=== PATIENT | male | born 1945 | race Caucasian/White ===

== ENCOUNTER 2019-08-07 08:06 | Emergency (ER) | payer OTHER, MEDICARE, BC ==
[2019-08-07 08:17] VITALS: BP 175/90; PULSE 88
--- NOTE | 2019-08-07 08:23 | EDM.PDOC ---
"ED HPI GENERAL MEDICAL PROBLEM - General Chief Complaint: Trauma Stated Complaint: FELL AND HIT HEAD Time Seen by Provider: 08/07/19 08:15 Source of Information: Reports: Patient, RN, RN Notes Reviewed History Limitations: Reports: No Limitations - History of Present Illness INITIAL COMMENTS - FREE TEXT/NARRATIVE: Pt presents to ER by POV with c/o head injury sustained from falling on the ice just prior to arrival. He denies LOC, N/V, neck pain or injury, or any other areas of pain. Pt takes an Aspirin 81mg daily. Last Tetanus Vaccine was less than 2 years ago per pt. TRAUMA NOTES ARRIVAL TIME: 814 C-COLLAR STATUS: none/not indicated SPINAL BOARD/IMMOBILIZATION STATUS: n/a GCS ON ARRIVAL: 15 Onset: Today, Sudden Duration: Constant Location: Reports: Head Quality: Reports: Ache Severity: Mild Improves with: Reports: None Worsens with: Reports: None Context: Reports: Other (Fall) Associated Symptoms: Reports: No Other Symptoms - Related Data Allergies Allergy/AdvReac Type Severity Reaction Status Date / Time Penicillins Allergy Cannot Verified 08/07/19 08:24 Remember Home Meds: Home Meds Acetaminophen [Acetaminophen 8 Hour] 1 tab PO Q8H PRN 06/14/16 [History] Latanoprost [Xalatan 0.005% Ophth Soln] 1 drop EYEBOTH BEDTIME 06/14/16 [History ] Levothyroxine 25 mcg PO BEDTIME 06/14/16 [History] Simvastatin 20 mg PO BEDTIME 06/14/16 [History] Aspirin 325 mg PO DAILY 06/16/16 [History] Past Medical History HEENT History: Reports: Glaucoma, Hard of Hearing Cardiovascular History: Reports: High Cholesterol Respiratory History: Reports: Bronchitis, Recurrent Gastrointestinal History: Reports: Hemorrhoids, Other (See Below) Other Gastrointestinal History: VENTRAL HERNIA Genitourinary History: Reports: None Musculoskeletal History: Reports: Fracture, Other (See Below) Other Musculoskeletal History: DEGENERATIVE JOINT DISEASE Neurological History: Reports: None Psychiatric History: Reports: None Endocrine/Metabolic History: Reports: Hypothyroidism, Obesity/BMI 30+ Hematologic History: Reports: None Immunologic History: Reports: None Oncologic (Cancer) History: Reports: None Dermatologic History: Reports: None - Infectious Disease History Infectious Disease History: Reports: Measles, Mumps - Past Surgical History HEENT Surgical History: Reports: Other (See Below) Musculoskeletal Surgical History: Reports: Arthroscopic Knee, Joint Replacement , Other (See Below) Social & Family History - Family History HEENT: Reports: None Cardiac: Reports: None Respiratory: Reports: None GI: Reports: None : Reports: None OBGYN: Reports: None Musculoskeletal: Reports: Arthritis Neurological: Reports: None Psychiatric: Reports: None Endocrine/Metabolic: Reports: Hypothyroidism Hematologic: Reports: None Immunologic: Reports: None Dermatologic: Reports: None Oncologic: Reports: Prostate, Skin - Caffeine Use Caffeine Use: Reports: Coffee Review of Systems - Review of Systems Review Of Systems: Comprehensive ROS is negative, except as noted in HPI. ED EXAM, GENERAL - Physical Exam Exam: See Below Free Text/Narrative:: PRIMARY TRAUMA SURVEY (0815hrs) AIRWAY: Patent nasal and oral airways. BREATHING: Spontaneous respirations with clear B/L breath sounds. CIRCULATION: Heart RRR, intact distal pulses at all four extremities, no cyanosis. DEFORMITY/DISABILITY: No long bone deformities. No active bleeding. No neuro. deficits. Abdomen benign to exam. Chest non-tender. Pelvis stable. Posterior/ superior scalp with large hematoma, and 2cm linear laceration with dried blood on scalp, no active bleeding. EXPOSURE: Skin warm, and dry. SECONDARY TRAUMA SURVEY FOLLOWS (0850hrs) Exam Limited By: No Limitations General Appearance: Alert, WD/WN, No Apparent Distress, Obese Eye Exam: Bilateral Eye: EOMI, Normal Inspection, PERRL Ears: Normal External Exam, Normal Canal, Hearing Grossly Normal, Normal TMs Nose: Normal Inspection, Normal Mucosa, No Blood Throat/Mouth: Normal Inspection, Normal Lips, Normal Teeth, Normal Gums, Normal Oropharynx, Normal Voice, No Airway Compromise Head: Normocephalic, Other (scalp as per primary trauma survey) Neck: Normal Inspection, Supple, Non-Tender, Full Range of Motion. No: Tender Lateral, Tender Midline Respiratory/Chest: No Respiratory Distress, Lungs Clear, Normal Breath Sounds, No Accessory Muscle Use, Chest Non-Tender Cardiovascular: Regular Rate, Rhythm GI/Abdominal: Normal Bowel Sounds, Soft, Non-Tender Back Exam: Normal Inspection, Full Range of Motion Extremities: Normal Inspection, Normal Range of Motion, Non-Tender, Normal Capillary Refill, No Pedal Edema Neurological: Alert, Oriented, CN II-XII Intact, Normal Cognition, Normal Gait, No Motor/Sensory Deficits Psychiatric: Normal Affect, Normal Mood Skin Exam: Warm, Dry, Normal Color Course - Vital Signs Last Recorded V/S: Last Vital Signs Temp 98.0 F 08/07/19 08:15 Pulse 88 08/07/19 08:15 Resp 16 08/07/19 08:15 BP 175/90 H 08/07/19 08:15 Pulse Ox 96 08/07/19 08:15 - Orders/Labs/Meds Orders: Active Orders 24 hr Category Date Time Status Wound Care [RC] ONETIME Care 08/07/19 08:51 Ordered Head wo Cont [CT] Stat Exams 08/07/19 08:21 Taken Meds: Medications Discontinued Medications Generic Name Dose Route Start Last Admin Trade Name Freq PRN Reason Stop Dose Admin Bacitracin 1 dose 08/07/19 08:51 Bacitracin Oint 1 Gm TOP 08/07/19 08:52 ONETIME ONE - Radiology Interpretation Free Text/Narrative:: [facility] Final Radiology Report Call: [phone] assistance Online chat: [email or web address] Name: JIAN MCBRIDE Age: 73Years M Date: 08/07/2019 SSN: -- : [id number] Study: CT HEAD WO Requesting Physician: KHRIS LACY Images: 198 Addl Studies: Provided Clinical History: Contrast: Without Contrast Medium: Contrast Amount: Contrast Method: Page 1 of 2 PROCEDURE INFORMATION: Exam: CT Head Without Contrast Exam date and time: 08/07/2019 8:27 AM Age: 73 years old Clinical indication: Other: Fall on ice, head injury, on aspirin TECHNIQUE: Imaging protocol: Computed tomography of the head without contrast. Radiation optimization: All CT scans at this facility use at least one of these dose optimization techniques: automated exposure control; mA and/or kV adjustment per patient size (includes targeted exams where dose is matched to clinical indication); or iterative reconstruction. COMPARISON: No relevant prior studies available. FINDINGS: Brain: Normal. No hemorrhage. Unremarkable white matter. No mass effect. Ventricles: Normal. No ventriculomegaly. Bones/joints: Unremarkable. No acute fracture. Sinuses: Retention cyst versus polyp within the floor of the right maxillary sinus. Mastoid air cells: Partial opacification of the inferior right mastoid air cells Soft tissues: Right posterior parietal scalp hematoma. Vasculature: Dominant left vertebral artery. IMPRESSION: No acute intracranial abnormality. Thank you for allowing us to participate in the care of your patient. Dictated and Authenticated by: Abdoulaye Morris MD BUCHLI, GERALD | Final Radiology Report CONFIDENTIALITY STATEMENT This report is intended only for use by the referring physician, and only in accordance with law. If you received this in error, call [phone]. Page 2 of 2 08/07/2019 8:37 AM Central Time ([place] & [place]) - Re-Assessments/Exams Free Text/Narrative Re-Assessment/Exam: 08/07/19 08:53 On reassessment pt remains awake, alert and stable. The laceration of the scalp is superficial and does not require procedural closure. Pt will be d/c'd home. Departure - Departure Time of Disposition: 09:10 Disposition: Home, Self-Care 01 Condition: Good Clinical Impression: Traumatic hematoma of scalp Qualifiers: Encounter type: initial encounter Qualified Code(s): S00.03XA - Contusion of scalp, initial encounter Scalp laceration Qualifiers: Encounter type: initial encounter Qualified Code(s): S01.01XA - Laceration without foreign body of scalp, initial encounter Fall due to ice or snow Qualifiers: Encounter type: initial encounter Qualified Code(s): W00.9XXA - Unspecified fall due to ice and snow, initial encounter - Discharge Information *PRESCRIPTION DRUG MONITORING PROGRAM REVIEWED*: Not Applicable *COPY OF PRESCRIPTION DRUG MONITORING REPORT IN PATIENT ESCOBAR: Not Applicable Instructions: Hematoma, Nonsutured Laceration Care Forms: ED Department Discharge Additional Instructions: Activity as tolerated. The scalp swelling from the hematoma may take two to three weeks to resolve. Apply an ice pack to the scalp to reduce pain and swelling. Follow up in clinic if any further concerns. Sepsis Event Note - Evaluation Sepsis Screening Result: No Definite Risk - Focused Exam Vital Signs: Vital Signs Temp Pulse Resp BP Pulse Ox 08/07/19 08:15 98.0 F 88 16 175/90 H 96 Date Exam was Performed: 08/07/19 Time Exam was Performed: 08:52 - My Orders Last 24 Hours: My Active Orders 08/07/19 08:21 Head wo Cont [CT] Stat 08/07/19 08:51 Wound Care [RC] ONETIME - Assessment/Plan Last 24 Hours: My Active Orders 08/07/19 08:21 Head wo Cont [CT] Stat 08/07/19 08:51 Wound Care [RC] ONETIME"
[2019-08-07] MEDS ORDERED: Bacitracin Oint 1 GM U/D Packet TOP ONE (08:51)
== END 2019-08-07 09:00 | disposition home or self-care (01) ==
LOC: DL.ED 08:06
DX: S01.01XA Laceration without foreign body of scalp, initial encounter (principal); E78.00 Pure hypercholesterolemia, unspecified; E03.9 Hypothyroidism, unspecified; E66.9 Obesity, unspecified; Z68.39 Body mass index [BMI] 39.0-39.9, adult; Z88.0 Allergy status to penicillin; Z79.899 Other long term (current) drug therapy; Z79.82 Long term (current) use of aspirin; W00.9XXA Unspecified fall due to ice and snow, initial encounter
CPT/HCPCS: 70450; 99283-25

== ENCOUNTER 2020-04-11 09:38 | Inpatient (IN) | payer MEDICARE, BC ==
[2020-04-11] MEDS ORDERED: Acetaminophen 325 MG Tab PO PRN (09:41)
[2020-04-11] MEDS ORDERED: Docusate Sodium 100 MG Cap PO PRN (10:35)
[2020-04-11] MEDS ORDERED: Ondansetron 4 MG/2 ML SDV IVPUSH PRN (10:35)
[2020-04-11] MEDS ORDERED: Temazepam 15 MG Cap PO PRN (10:35)
[2020-04-11] MEDS ORDERED: Ondansetron 4 MG Tab.DIS PO PRN (10:35)
[2020-04-11] MEDS: Dexamethasone 2 MG Tab PO SCH (10:41)
[2020-04-11] MEDS: Aspirin 325 MG Tab PO SCH (10:41)
[2020-04-11 10:59] LABS: ANION GAP 15.7 mEq/L (7-13); CHLORIDE,CL 100 mmol/L (98-107); SODIUM,NA 138 mmol/L (136-145)
--- NOTE | 2020-04-11 12:59 | CR ---
EXAMINATION: Chest 1V Frontal SEX: Male AGE: 74 years CLINICAL HISTORY: 74-year-old obese male with Respiratory Failure. Interpretation: Generally poor inspiratory effort with bibasilar atelectasis and ... *patchy new pneumonic like consolidation RLL (compared to 07 Oct 2011 film). This has a "groundglass" like appearance and clinical correlation (COVID test?) Requested. Cardiac silhouette accentuated by poor inspiration. No pulmonary vascular congestion, cephalization of flow or dependent pleural fluid accumulation (effusion). No new lung mass or hilar lymphadenopathy. No pneumothorax or pneumomediastinum. Midline trachea unremarkable. CONCLUSION: Abnormal. INTERPRETATION: 1. CONCLUSION:
--- NOTE | 2020-04-11 13:46 | PCM.HP ---
H&P History of Present Illness - General Date of Service: 04/11/20 Admit Problem/Dx: Admission Diagnosis/Problem Admission Diagnosis/Problem Pneumonia Source of Information: Patient - History of Present Illness Initial Comments - Free Text/Narative: 74-year-old with a history of hypothyroidism, morbid obesity. No underlying lung disease although "I get bronchitis easy" no smoking The patient was out hunting with friends. Developed coughing on 07 April. Tested positive for covid on 08 April all other members of the hunting democrat tested positive as well. Continues to have cough, no significant chest pain, Shortness of breath with activity Went to the clinic and was noted to have 89% room air saturation - Related Data Allergies/Adverse Reactions: Allergies Allergy/AdvReac Type Severity Reaction Status Date / Time Penicillins Allergy Cannot Verified 08/07/19 08:24 Remember Home Medications: Home Meds Acetaminophen [Acetaminophen 8 Hour] 1 tab PO Q8H PRN 06/14/16 [History] Latanoprost [Xalatan 0.005% Ophth Soln] 1 drop EYEBOTH BEDTIME 06/14/16 [History] Levothyroxine 25 mcg PO BEDTIME 06/14/16 [History] Simvastatin 20 mg PO BEDTIME 06/14/16 [History] Aspirin 325 mg PO DAILY 06/16/16 [History] Past Medical History HEENT History: Reports: Glaucoma, Hard of Hearing Cardiovascular History: Reports: High Cholesterol Respiratory History: Reports: Bronchitis, Recurrent Gastrointestinal History: Reports: Hemorrhoids, Other (See Below) Other Gastrointestinal History: VENTRAL HERNIA Genitourinary History: Reports: None Musculoskeletal History: Reports: Fracture, Other (See Below) Other Musculoskeletal History: DEGENERATIVE JOINT DISEASE Neurological History: Reports: None Psychiatric History: Reports: None Endocrine/Metabolic History: Reports: Hypothyroidism, Obesity/BMI 30+ Hematologic History: Reports: None Immunologic History: Reports: None Oncologic (Cancer) History: Reports: None Dermatologic History: Reports: None - Infectious Disease History Infectious Disease History: Reports: Novel Coronavirus - Past Surgical History HEENT Surgical History: Reports: Other (See Below) Musculoskeletal Surgical History: Reports: Arthroscopic Knee, Joint Replacement, Other (See Below) Social & Family History - Family History HEENT: Reports: None Cardiac: Reports: None Respiratory: Reports: None GI: Reports: None : Reports: None OBGYN: Reports: None Musculoskeletal: Reports: Arthritis Neurological: Reports: None Psychiatric: Reports: None Endocrine/Metabolic: Reports: Hypothyroidism Hematologic: Reports: None Immunologic: Reports: None Dermatologic: Reports: None Oncologic: Reports: Prostate, Skin - Tobacco Use Tobacco Use Status *Q: Former Tobacco User Years of Tobacco use: 30 Used Tobacco, but Quit: Yes Month/Year Tobacco Last Used: 1947 - Caffeine Use Caffeine Use: Reports: None - Recreational Drug Use Recreational Drug Use: No H&P Review of Systems - Review of Systems: Review Of Systems: See Below General: Reports: Malaise, Weakness. Denies: Fever Pulmonary: Reports: Shortness of Breath, Cough (with activity). Denies: Sputum, Hemoptysis Cardiovascular: Denies: Chest Pain, Edema Psychiatric: Denies: Confusion Exam - Exam Exam: See Below - Vital Signs Vital Signs: Last Vital Signs Temp 100.8 F H 04/11/20 10:09 Pulse 103 H 04/11/20 10:09 Resp 20 04/11/20 10:09 BP 151/87 H 04/11/20 10:09 Pulse Ox 93 L 04/11/20 10:09 Weight: 270 lb - Exam Quality Assessment: Supplemental Oxygen General: Alert, Oriented Neck: Supple Lungs: Normal Respiratory Effort, Decreased Breath Sounds. No: Rales, Wheezing Cardiovascular: Regular Rate, Regular Rhythm Extremities: No Pedal Edema - Patient Data Lab Results Last 24 hrs: Laboratory Results - last 24 hr 04/11/20 04/11/20 04/11/20 Range/Units 10:17 10:17 10:17 WBC 7.2 (5.0-10.0) 10^3/uL RBC 5.04 (4.6-6.2) 10^6/uL Hgb 15.0 (14.0-18.0) g/dL Hct 44.9 (40.0-54.0) % MCV 89.1 (80-100) fL MCH 29.8 (27.0-34.0) pg MCHC 33.4 (33.0-35.0) g/dL Plt Count 171 (150-450) 10^3/uL Neut % (Auto) 89.7 H (42.2-75.2) % Lymph % (Auto) 3.9 L (20.5-50.1) % Dent % (Auto) 5.4 (2-8) % Eos % (Auto) 0.7 L (1.0-3.0) % Baso % (Auto) 0.3 (0.0-1.0) % PT (9.0-12.0) SEC INR (0.9-1.2) D-Dimer, Quantitative 985 H (0-400) ng/mL Sodium (136-145) mmol/L Potassium (3.5-5.1) mmol/L Chloride (98-107) mmol/L Carbon Dioxide (21-32) mmol/L Anion Gap (7-13) mEq/L BUN (7-18) mg/dL Creatinine (0.70-1.30) mg/dL Est Cr Clr Drug Dosing mL/min Estimated GFR (MDRD) Glucose (74-99) mg/dL Lactic Acid (0.4-2.0) mmol/L Calcium (8.5-10.1) mg/dL Ferritin 493 H (26-388) mg/mL Total Bilirubin (0.2-1.0) mg/dL Direct Bilirubin (0.0-0.2) mg/dL Indirect Bilirubin AST (15-37) U/L ALT (16-63) U/L Alkaline Phosphatase (46-116) U/L C-Reactive Protein (0.0-0.9) mg/dL Total Protein (6.4-8.2) g/dL Albumin (3.4-5.0) g/dL Globulin Albumin/Globulin Ratio 04/11/20 04/11/20 04/11/20 Range/Units 10:17 10:17 10:17 WBC (5.0-10.0) 10^3/uL RBC (4.6-6.2) 10^6/uL Hgb (14.0-18.0) g/dL Hct (40.0-54.0) % MCV (80-100) fL MCH (27.0-34.0) pg MCHC (33.0-35.0) g/dL Plt Count (150-450) 10^3/uL Neut % (Auto) (42.2-75.2) % Lymph % (Auto) (20.5-50.1) % Dent % (Auto) (2-8) % Eos % (Auto) (1.0-3.0) % Baso % (Auto) (0.0-1.0) % PT 10.8 (9.0-12.0) SEC INR 1.1 (0.9-1.2) D-Dimer, Quantitative (0-400) ng/mL Sodium 138 (136-145) mmol/L Potassium 3.7 (3.5-5.1) mmol/L Chloride 100 (98-107) mmol/L Carbon Dioxide 26 (21-32) mmol/L Anion Gap 15.7 H (7-13) mEq/L BUN 17 (7-18) mg/dL Creatinine 1.14 (0.70-1.30) mg/dL Est Cr Clr Drug Dosing 57.81 mL/min Estimated GFR (MDRD) > 60 Glucose 117 H (74-99) mg/dL Lactic Acid 1.4 (0.4-2.0) mmol/L Calcium 8.6 (8.5-10.1) mg/dL Ferritin (26-388) mg/mL Total Bilirubin 0.6 (0.2-1.0) mg/dL Direct Bilirubin 0.2 (0.0-0.2) mg/dL Indirect Bilirubin 0.4 AST 62 H (15-37) U/L ALT 60 (16-63) U/L Alkaline Phosphatase 162 H (46-116) U/L C-Reactive Protein 9.2 H (0.0-0.9) mg/dL Total Protein 6.9 (6.4-8.2) g/dL Albumin 2.9 L (3.4-5.0) g/dL Globulin 4.0 Albumin/Globulin Ratio 0.73 Result Diagrams: 04/11/20 10:17 04/11/20 10:17 - Problem List (1) Pneumonia due to COVID-19 virus SNOMED Code(s): 564712933783201980 ICD Code: U07.1 - COVID-19; J12.89 - OTHER VIRAL PNEUMONIA Status: Acute Current Visit: Yes (2) Pneumonia due to COVID-19 virus SNOMED Code(s): 698771458182288454 ICD Code: U07.1 - COVID-19; J12.89 - OTHER VIRAL PNEUMONIA Status: Acute Current Visit: Yes (3) Hypoxemia SNOMED Code(s): 302973327 ICD Code: R09.02 - HYPOXEMIA Status: Acute Current Visit: Yes (4) Hypothyroid SNOMED Code(s): 42764972 ICD Code: E03.9 - HYPOTHYROIDISM, UNSPECIFIED Status: Acute Current Visit: Yes (5) Dyslipidemia SNOMED Code(s): 401713065 ICD Code: E78.5 - HYPERLIPIDEMIA, UNSPECIFIED Status: Acute Current Visit: Yes Problem List Initiated/Reviewed/Updated: Yes Orders Last 24hrs: Active Orders 24 hr Category Date Time Status Patient Status [ADT] Routine ADT 04/11/20 10:35 Active Oxygen Therapy [RC] PRN Care 04/11/20 10:35 Active Peripheral IV Care [RC] . DIRECTED Care 04/11/20 10:37 Active Up With Assistance [RC] ASDIRECTED Care 04/11/20 10:35 Active VTE/DVT Education [RC] PER UNIT ROUTINE Care 04/11/20 10:35 Active Verify Patient Consent Obtain [RC] ASDIRECTED Care 04/11/20 13:39 Ordered Vital Signs [RC] Q4H Care 04/11/20 10:35 Active Regular Diet [DIET] Diet 04/11/20 Lunch Active ABO/RH TYPE [BBK] Routine Lab 04/11/20 13:39 Ordered BASIC METABOLIC PANEL,BMP [CHEM] AM Lab 04/13/20 05:11 Ordered BASIC METABOLIC PANEL,BMP [CHEM] AM Lab 04/14/20 05:11 Ordered BASIC METABOLIC PANEL,BMP [CHEM] AM Lab 04/15/20 05:11 Ordered BASIC METABOLIC PANEL,BMP [CHEM] AM Lab 04/16/20 05:11 Ordered BASIC METABOLIC PANEL,BMP [CHEM] AM Lab 04/17/20 05:11 Ordered CBC WITH AUTO DIFF [HEME] AM Lab 04/13/20 05:11 Ordered CBC WITH AUTO DIFF [HEME] AM Lab 04/14/20 05:11 Ordered CBC WITH AUTO DIFF [HEME] AM Lab 04/15/20 05:11 Ordered CBC WITH AUTO DIFF [HEME] AM Lab 04/16/20 05:11 Ordered CBC WITH AUTO DIFF [HEME] AM Lab 04/17/20 05:11 Ordered CULTURE BLOOD [BC] Stat Lab 04/11/20 10:14 Received CULTURE BLOOD [BC] Stat Lab 04/11/20 10:17 Received CULTURE SPUTUM + SMEAR [RM] Routine Lab 04/11/20 09:42 Ordered DD [D-DIMER QUANTITATIVE] [COAG] AM Lab 04/12/20 05:11 Ordered DD [D-DIMER QUANTITATIVE] [COAG] AM Lab 04/13/20 05:11 Ordered DD [D-DIMER QUANTITATIVE] [COAG] AM Lab 04/14/20 05:11 Ordered DD [D-DIMER QUANTITATIVE] [COAG] AM Lab 04/15/20 05:11 Ordered DD [D-DIMER QUANTITATIVE] [COAG] AM Lab 04/16/20 05:11 Ordered FRESH FROZEN PLASMA [BBK] Routine Lab 04/11/20 13:39 Ordered HEPATIC FUNCTION PANEL,[facility] [CHEM] AM Lab 04/12/20 05:11 Ordered HEPATIC FUNCTION PANEL,[facility] [CHEM] AM Lab 04/13/20 05:11 Ordered HEPATIC FUNCTION PANEL,[facility] [CHEM] AM Lab 04/14/20 05:11 Ordered HEPATIC FUNCTION PANEL,[facility] [CHEM] AM Lab 04/15/20 05:11 Ordered HEPATIC FUNCTION PANEL,[facility] [CHEM] AM Lab 04/16/20 05:11 Ordered MAGNESIUM [CHEM] AM Lab 04/12/20 05:11 Ordered MAGNESIUM [CHEM] AM Lab 04/13/20 05:11 Ordered MAGNESIUM [CHEM] AM Lab 04/14/20 05:11 Ordered MAGNESIUM [CHEM] AM Lab 04/15/20 05:11 Ordered MAGNESIUM [CHEM] AM Lab 04/16/20 05:11 Ordered PHOSPHORUS [CHEM] AM Lab 04/12/20 05:11 Ordered PHOSPHORUS [CHEM] AM Lab 04/13/20 05:11 Ordered PHOSPHORUS [CHEM] AM Lab 04/14/20 05:11 Ordered PHOSPHORUS [CHEM] AM Lab 04/15/20 05:11 Ordered PHOSPHORUS [CHEM] AM Lab 04/16/20 05:11 Ordered PROCALCITONIN [REF] DAILY Lab 04/11/20 13:45 Ordered PROCALCITONIN [REF] DAILY Lab 04/12/20 13:45 Ordered PROCALCITONIN [REF] DAILY Lab 04/13/20 13:45 Ordered PROCALCITONIN [REF] DAILY Lab 04/14/20 13:45 Ordered PROCALCITONIN [REF] DAILY Lab 04/15/20 13:45 Ordered PROCALCITONIN [REF] Stat Lab 04/11/20 10:17 Received Acetaminophen [TylenoL] Med 04/11/20 09:41 Active 650 mg PO Q4H PRN Aspirin Med 04/11/20 09:45 Active 325 mg PO DAILY Docusate Sodium [Colace] Med 04/11/20 10:35 Active 100 mg PO BID PRN Enoxaparin [Lovenox] Med 04/12/20 09:00 Active 40 mg SUBCUT DAILY Latanoprost [Xalatan 0.005% Ophth Soln] Med 04/11/20 21:00 Active 0 ml EYEBOTH BEDTIME Levothyroxine Med 04/11/20 21:00 Active 25 mcg PO BEDTIME Ondansetron [Zofran ODT] Med 04/11/20 10:35 Active 4 mg PO Q6H PRN Ondansetron [Zofran] Med 04/11/20 10:35 Active 4 mg IVPUSH Q6H PRN Remdesivir (Eua) [Remdesivir (EUA)] 100 mg Med 04/12/20 09:00 Ordered Sodium Chloride 0.9% [Normal Saline] 230 ml IV Q24H Remdesivir (Eua) [Remdesivir (EUA)] 200 mg Med 04/11/20 13:40 Ordered Sodium Chloride 0.9% [Normal Saline] 210 ml IV ONETIME Sodium Chloride 0.9% [Saline Flush] Med 04/11/20 10:35 Active 10 ml FLUSH ASDIRECTED PRN Temazepam [Restoril] Med 04/11/20 10:35 Active 15 mg PO BEDTIME PRN dexAMETHasone Med 04/11/20 09:45 Active 6 mg PO DAILY Blood Culture x2 Reflex Set [OM.PC] Stat Oth 04/11/20 12:47 Ordered Isolation [COMM] Stat Ot 04/11/20 09:41 Active Peripheral IV Insertion Adult [OM.PC] Routine Oth 04/11/20 10:35 Ordered Saline Lock Insert [OM.PC] Routine Oth 04/11/20 10:35 Ordered Transfuse Fresh Frozen Plasma [COMM] Routine Oth 04/11/20 13:39 Ordered Resuscitation Status Routine Resus Stat 04/11/20 10:35 Ordered Medication Orders Acetaminophen (Tylenol) 650 mg PO Q4H PRN PRN Reason: Fever Greater Than 101 Last Admin: 04/11/20 10:48 Dose: 650 mg Documented by: FOREIGN Aspirin (Aspirin) 325 mg PO DAILY [facility] Last Admin: 04/11/20 10:41 Dose: 325 mg Documented by: FOREIGN Dexamethasone (Dexamethasone) 6 mg PO DAILY CHARLENE Stop: 04/20/20 09:01 Last Admin: 04/11/20 10:41 Dose: 6 mg Documented by: FOREIGN Docusate Sodium (Colace) 100 mg PO BID PRN PRN Reason: Constipation Enoxaparin Sodium (Lovenox) 40 mg SUBCUT DAILY CHARLENE Latanoprost (Xalatan 0.005% Ophth Soln) 0 ml EYEBOTH BEDTIME CHARLENE Levothyroxine Sodium (Levothyroxine) 25 mcg PO BEDTIME CHARLENE Ondansetron HCl (Zofran Odt) 4 mg PO Q6H PRN PRN Reason: nausea, able to take PO Ondansetron HCl (Zofran) 4 mg IVPUSH Q6H PRN PRN Reason: Nausea/Vomiting Sodium Chloride (Saline Flush) 10 ml FLUSH ASDIRECTED PRN PRN Reason: Keep Vein Open Temazepam (Restoril) 15 mg PO BEDTIME PRN PRN Reason: Sleep Assessment/Plan Comment:: presented with cough Tested positive for Covid Noted to have hypoxemia in the clinic and was referred to Hospital evaluation and treatment Acute hypoxemic respiratory failure secondary to Covid 19 pneumonia Supplement oxygen as needed Covid 19 pneumonia symptoms started on 04/07 Positive covid 19 screen on 04/08 Symptoms: cough, Pneumonia: yes, RLL patchy opacity on 04/11 Hypoxemia: yes 89% on RA 04/11 in clinic LFT, Renal fx. Is good treat with Remdesivir 04/11- discussed potential complications with Dexamethasone 04/11- Plasma 04/11 discussed risks, benefits evaluate for concurrent bacterial infections Follow pro-calcitonin levels In the meantime hold Abx Ddimer is low - DVT prophylaxis SQ Lovenox daily hypothyroidism Continue Synthroid dyslipidemia Hold statin for now
[2020-04-11] MEDS: Sodium Chloride 0.9% 10 ML Syringe FLUSH PRN (16:39)
[2020-04-11] MEDS: Levothyroxine 25 MCG Tab PO SCH (20:24)
[2020-04-11] MEDS: Latanoprost 0.005% Ophth Soln 2.5 ML Bottle EYEBOTH SCH (20:24)
[2020-04-12] MEDS: Dexamethasone 2 MG Tab PO SCH (08:38)
[2020-04-12] MEDS: Aspirin 325 MG Tab PO SCH (08:38)
[2020-04-12] MEDS ORDERED: Enoxaparin 40 MG/0.4 ML Syringe SUBCUT SCH (09:00)
--- NOTE | 2020-04-12 11:20 | PCM.PN ---
- General Info Date of Service: 04/12/20 Subjective Update: feeling well Still on nasal cannula oxygen Has cough but no significant sputum No associated chest pain, chills Slept well, tolerating diet, no diarrhea or abdominal symptoms Functional Status: Reports: Pain Controlled, Tolerating Diet, Ambulating - Review of Systems General: Denies: Fever, Weakness Pulmonary: Reports: Shortness of Breath Cardiovascular: Denies: Chest Pain, Edema Gastrointestinal: Denies: Abdominal Pain Neurological: Denies: Confusion - Patient Data Vitals - Most Recent: Last Vital Signs Temp 98.5 F 04/12/20 08:00 Pulse 72 04/12/20 08:00 Resp 20 04/12/20 08:00 BP 147/84 H 04/12/20 08:00 Pulse Ox 95 04/12/20 08:00 Weight - Most Recent: 270 lb I&O - Last 24 Hours: Intake & Output 04/11/20 04/12/20 04/12/20 22:59 06:59 14:59 Intake Total 492 350 Balance 492 350 Lab Results Last 24 Hours: Laboratory Results - last 24 hr 04/11/20 04/11/20 04/11/20 Range/Units 10:17 10:17 10:17 D-Dimer, Quantitative (0-400) ng/mL Phosphorus (2.6-4.7) mg/dL Magnesium (1.8-2.4) mg/dL Ferritin 493 H (26-388) mg/mL Total Bilirubin (0.2-1.0) mg/dL Direct Bilirubin (0.0-0.2) mg/dL Indirect Bilirubin AST (15-37) U/L ALT (16-63) U/L Alkaline Phosphatase (46-116) U/L Total Protein (6.4-8.2) g/dL Albumin (3.4-5.0) g/dL Globulin Albumin/Globulin Ratio Procalcitonin 0.23 H (<0.10) ng/mL Blood Type O POSITIVE 04/12/20 04/12/20 Range/Units 06:22 06:22 D-Dimer, Quantitative 738 H (0-400) ng/mL Phosphorus 2.9 (2.6-4.7) mg/dL Magnesium 2.2 (1.8-2.4) mg/dL Ferritin (26-388) mg/mL Total Bilirubin 0.3 (0.2-1.0) mg/dL Direct Bilirubin 0.1 (0.0-0.2) mg/dL Indirect Bilirubin 0.2 AST 47 H (15-37) U/L ALT 59 (16-63) U/L Alkaline Phosphatase 154 H (46-116) U/L Total Protein 6.5 (6.4-8.2) g/dL Albumin 2.6 L (3.4-5.0) g/dL Globulin 3.9 Albumin/Globulin Ratio 0.67 Procalcitonin (<0.10) ng/mL Blood Type Med Orders - Current: Current Medications Acetaminophen (Tylenol) 650 mg PO Q4H PRN PRN Reason: Fever Greater Than 101 Last Admin: 04/11/20 10:48 Dose: 650 mg Documented by: Aspirin (Aspirin) 325 mg PO DAILY [facility] Last Admin: 04/12/20 08:38 Dose: 325 mg Documented by: Dexamethasone (Dexamethasone) 6 mg PO DAILY [facility] Stop: 04/20/20 09:01 Last Admin: 04/12/20 08:38 Dose: 6 mg Documented by: Docusate Sodium (Colace) 100 mg PO BID PRN PRN Reason: Constipation Enoxaparin Sodium (Lovenox) 40 mg SUBCUT BID [facility] Remdesivir 100 mg/ Sodium (Chloride) 230 mls @ 230 mls/hr IV Q24H [facility] Stop: 04/15/20 14:59 Latanoprost (Xalatan 0.005% Ophth Soln) 0 ml EYEBOTH BEDTIME [facility] Last Admin: 04/11/20 20:24 Dose: 1 drop Documented by: Levothyroxine Sodium (Levothyroxine) 25 mcg PO BEDTIME [facility] Last Admin: 04/11/20 20:24 Dose: 25 mcg Documented by: Ondansetron HCl (Zofran Odt) 4 mg PO Q6H PRN PRN Reason: nausea, able to take PO Ondansetron HCl (Zofran) 4 mg IVPUSH Q6H PRN PRN Reason: Nausea/Vomiting Sodium Chloride (Saline Flush) 10 ml FLUSH ASDIRECTED PRN PRN Reason: Keep Vein Open Last Admin: 04/11/20 16:39 Dose: 10 ml Documented by: Temazepam (Restoril) 15 mg PO BEDTIME PRN PRN Reason: Sleep Discontinued Medications Enoxaparin Sodium (Lovenox) 40 mg SUBCUT DAILY [facility] Remdesivir 200 mg/ Sodium (Chloride) 210 mls @ 210 mls/hr IV ONETIME ONE Stop: 04/11/20 15:14 Last Infusion: 04/11/20 16:39 Dose: Infused Documented by: - Exam Quality Assessment: Supplemental Oxygen General: Alert, Oriented Lungs: Normal Respiratory Effort, Decreased Breath Sounds GI/Abdominal Exam: Normal Bowel Sounds, Soft, Non-Tender, Other (obese) Extremities: No Pedal Edema Sepsis Event Note - Evaluation Sepsis Screening Result: No Definite Risk - Focused Exam Vital Signs: Vital Signs Temp Pulse Resp BP Pulse Ox 04/12/20 08:00 98.5 F 72 20 147/84 H 95 04/12/20 04:00 95 - Problem List & Annotations (1) Pneumonia due to COVID-19 virus SNOMED Code(s): 066527573943133044 Code(s): U07.1 - COVID-19; J12.89 - OTHER VIRAL PNEUMONIA Status: Acute Current Visit: Yes (2) Pneumonia due to COVID-19 virus SNOMED Code(s): 753357327805972346 Code(s): U07.1 - COVID-19; J12.89 - OTHER VIRAL PNEUMONIA Status: Acute Current Visit: Yes (3) Hypoxemia SNOMED Code(s): 393320627 Code(s): R09.02 - HYPOXEMIA Status: Acute Current Visit: Yes (4) Hypothyroid SNOMED Code(s): 12064212 Code(s): E03.9 - HYPOTHYROIDISM, UNSPECIFIED Status: Acute Current Visit: Yes (5) Dyslipidemia SNOMED Code(s): 541659642 Code(s): E78.5 - HYPERLIPIDEMIA, UNSPECIFIED Status: Acute Current Visit: Yes - Problem List Review Problem List Initiated/Reviewed/Updated: Yes - My Orders Last 24 Hours: My Active Orders 04/11/20 10:17 ABO/RH TYPE [BBK] Routine CULTURE BLOOD [BC] Stat FRESH FROZEN PLASMA [BBK] Routine 04/11/20 10:35 Patient Status [ADT] Routine Oxygen Therapy [RC] PRN Up With Assistance [RC] ASDIRECTED VTE/DVT Education [RC] PER UNIT ROUTINE Vital Signs [RC] 00,04,08,12,16,20 Docusate Sodium [Colace] 100 mg PO BID PRN Ondansetron [Zofran ODT] 4 mg PO Q6H PRN Ondansetron [Zofran] 4 mg IVPUSH Q6H PRN Sodium Chloride 0.9% [Saline Flush] 10 ml FLUSH ASDIRECTED PRN Temazepam [Restoril] 15 mg PO BEDTIME PRN Peripheral IV Insertion Adult [OM.PC] Routine Saline Lock Insert [OM.PC] Routine Resuscitation Status Routine 04/11/20 10:37 Peripheral IV Care [RC] 04/11/20 Lunch Regular Diet [DIET] 04/11/20 12:47 Blood Culture x2 Reflex Set [OM.PC] Stat 04/11/20 13:39 Verify Patient Consent Obtain [RC] ASDIRECTED Transfuse Fresh Frozen Plasma [COMM] Routine 04/11/20 21:00 Latanoprost [Xalatan 0.005% Ophth Soln] 0 ml EYEBOTH BEDTIME Levothyroxine 25 mcg PO BEDTIME 04/11/20 22:16 Flutter Valve Therapy [RT Chest Physiotherapy] [RC] Q1HWA Incentive Spirometry [RT Incentive Spirometry] [RC] Q1HWA 04/12/20 06:22 PROCALCITONIN [REF] DAILY 04/12/20 14:00 Remdesivir (Eua) [Remdesivir (EUA)] 100 mg Sodium Chloride 0.9% [Normal Saline] 230 ml IV Q24H 04/12/20 21:00 Enoxaparin [Lovenox] 40 mg SUBCUT BID 04/13/20 05:11 BASIC METABOLIC PANEL,BMP [CHEM] AM CBC WITH AUTO DIFF [HEME] AM DD [D-DIMER QUANTITATIVE] [COAG] AM HEPATIC FUNCTION PANEL,HFP [CHEM] AM MAGNESIUM [CHEM] AM PHOSPHORUS [CHEM] AM 04/13/20 13:45 PROCALCITONIN [REF] DAILY 04/14/20 05:11 BASIC METABOLIC PANEL,BMP [CHEM] AM CBC WITH AUTO DIFF [HEME] AM DD [D-DIMER QUANTITATIVE] [COAG] AM HEPATIC FUNCTION PANEL,HFP [CHEM] AM MAGNESIUM [CHEM] AM PHOSPHORUS [CHEM] AM 04/14/20 13:45 PROCALCITONIN [REF] DAILY 04/15/20 05:11 BASIC METABOLIC PANEL,BMP [CHEM] AM CBC WITH AUTO DIFF [HEME] AM DD [D-DIMER QUANTITATIVE] [COAG] AM HEPATIC FUNCTION PANEL,HFP [CHEM] AM MAGNESIUM [CHEM] AM PHOSPHORUS [CHEM] AM 04/15/20 13:45 PROCALCITONIN [REF] DAILY 04/16/20 05:11 BASIC METABOLIC PANEL,BMP [CHEM] AM CBC WITH AUTO DIFF [HEME] AM DD [D-DIMER QUANTITATIVE] [COAG] AM HEPATIC FUNCTION PANEL,HFP [CHEM] AM MAGNESIUM [CHEM] AM PHOSPHORUS [CHEM] AM 04/17/20 05:11 BASIC METABOLIC PANEL,BMP [CHEM] AM CBC WITH AUTO DIFF [HEME] AM - Plan Plan:: presented with cough Tested positive for Covid Noted to have hypoxemia in the clinic and was referred to Hospital evaluation and treatment Acute hypoxemic respiratory failure secondary to Covid 19 pneumonia Supplement oxygen as needed on a few liters nasal cannula oxygen now Covid 19 pneumonia symptoms started on 04/07 Positive covid 19 screen on 04/08 Symptoms: cough, Pneumonia: yes, RLL patchy opacity on 04/11 Hypoxemia: yes 89% on RA 04/11 in clinic LFT, Renal fx. Is good treat with Remdesivir 04/11- Dexamethasone 04/11- Plasma ordered 2 units 04/11 evaluate for concurrent bacterial infections 04/11 pro-calcitonin level: 0.23 for now hold Abx recheck in AM to trend Ddimer is high - increase DVT prophylaxis SQ Lovenox to BID hypothyroidism Continue Synthroid dyslipidemia Hold statin for now while on remdesivir
[2020-04-12] MEDS: Sodium Chloride 0.9% 10 ML Syringe FLUSH PRN (14:13)
[2020-04-12] MEDS: Enoxaparin 40 MG/0.4 ML Syringe SUBCUT SCH (20:54)
[2020-04-12] MEDS: Levothyroxine 25 MCG Tab PO SCH (20:55)
[2020-04-12] MEDS: Latanoprost 0.005% Ophth Soln 2.5 ML Bottle EYEBOTH SCH (20:56)
[2020-04-13 07:14] LABS: ANION GAP 12.7 mEq/L (7-13); CHLORIDE,CL 105 mmol/L (98-107); SODIUM,NA 142 mmol/L (136-145)
[2020-04-13] MEDS: Enoxaparin 40 MG/0.4 ML Syringe SUBCUT SCH ×2 (08:16→20:58)
[2020-04-13] MEDS: Sodium Chloride 0.9% 10 ML Syringe FLUSH PRN ×3 (08:17→15:13)
[2020-04-13] MEDS: Aspirin 325 MG Tab PO SCH (08:17)
[2020-04-13] MEDS: Dexamethasone 2 MG Tab PO SCH (08:17)
--- NOTE | 2020-04-13 12:50 | PCM.PN ---
- General Info Date of Service: 04/13/20 Admission Dx/Problem (Free Text): Admission Diagnosis/Problem Admission Diagnosis/Problem Pneumonia Subjective Update: feeling well Still on nasal cannula oxygen 3 l/min Has cough but no significant sputum No associated chest pain, chills tolerating diet, no diarrhea or abdominal symptoms Functional Status: Reports: Pain Controlled, Tolerating Diet, Ambulating - Review of Systems General: Reports: Weakness. Denies: Fever Pulmonary: Reports: Shortness of Breath (with activity) Cardiovascular: Denies: Chest Pain, Edema - Patient Data Vitals - Most Recent: Last Vital Signs Temp 99.0 F 04/13/20 08:00 Pulse 72 04/13/20 08:00 Resp 20 04/13/20 08:00 BP 146/79 H 04/13/20 08:00 Pulse Ox 93 L 04/13/20 08:00 Weight - Most Recent: 270 lb I&O - Last 24 Hours: Intake & Output 04/12/20 04/13/20 04/13/20 22:59 06:59 14:59 Intake Total 677 660 Balance 677 660 Lab Results Last 24 Hours: Laboratory Results - last 24 hr 04/13/20 04/13/20 04/13/20 Range/Units 06:11 06:11 06:11 WBC 9.4 (5.0-10.0) 10^3/uL RBC 4.66 (4.6-6.2) 10^6/uL Hgb 14.0 (14.0-18.0) g/dL Hct 42.2 (40.0-54.0) % MCV 90.6 (80-100) fL MCH 30.0 (27.0-34.0) pg MCHC 33.2 (33.0-35.0) g/dL Plt Count 214 (150-450) 10^3/uL Neut % (Auto) 86.3 H (42.2-75.2) % Lymph % (Auto) 5.4 L (20.5-50.1) % [place] % (Auto) 8.2 H (2-8) % Eos % (Auto) 0.0 L (1.0-3.0) % Baso % (Auto) 0.1 (0.0-1.0) % D-Dimer, Quantitative 393 (0-400) ng/mL Sodium 142 (136-145) mmol/L Potassium 3.7 (3.5-5.1) mmol/L Chloride 105 (98-107) mmol/L Carbon Dioxide 28 (21-32) mmol/L Anion Gap 12.7 (7-13) mEq/L BUN 24 H (7-18) mg/dL Creatinine 0.99 (0.70-1.30) mg/dL Est Cr Clr Drug Dosing 66.57 mL/min Estimated GFR (MDRD) > 60 Glucose 101 H (74-99) mg/dL Calcium 8.4 L (8.5-10.1) mg/dL Phosphorus 3.4 (2.6-4.7) mg/dL Magnesium 2.0 (1.8-2.4) mg/dL Total Bilirubin 0.3 (0.2-1.0) mg/dL Direct Bilirubin 0.1 (0.0-0.2) mg/dL Indirect Bilirubin 0.2 AST 38 H (15-37) U/L ALT 53 (16-63) U/L Alkaline Phosphatase 139 H (46-116) U/L Total Protein 6.3 L (6.4-8.2) g/dL Albumin 2.6 L (3.4-5.0) g/dL Globulin 3.7 Albumin/Globulin Ratio 0.70 Sotero Results Last 24 Hours: Microbiology 04/11/20 10:14 Aerobic Blood Culture - Preliminary Blood - Arm, Left NO GROWTH AFTER 2 DAYS Anaerobic Blood Culture - Preliminary NO GROWTH AFTER 2 DAYS 04/11/20 10:17 Aerobic Blood Culture - Preliminary Blood - Arm, Right NO GROWTH AFTER 1 DAY Anaerobic Blood Culture - Preliminary NO GROWTH AFTER 1 DAY Med Orders - Current: Current Medications Acetaminophen (Tylenol) 650 mg PO Q4H PRN PRN Reason: Fever Greater Than 101 Last Admin: 04/11/20 10:48 Dose: 650 mg Documented by: Aspirin (Aspirin) 325 mg PO DAILY [facility] Last Admin: 04/13/20 08:17 Dose: 325 mg Documented by: Dexamethasone (Dexamethasone) 6 mg PO DAILY [facility] Stop: 04/20/20 09:01 Last Admin: 04/13/20 08:17 Dose: 6 mg Documented by: Docusate Sodium (Colace) 100 mg PO BID PRN PRN Reason: Constipation Enoxaparin Sodium (Lovenox) 40 mg SUBCUT BID [facility] Last Admin: 04/13/20 08:16 Dose: 40 mg Documented by: Remdesivir 100 mg/ Sodium (Chloride) 230 mls @ 230 mls/hr IV Q24H [facility] Stop: 04/15/20 14:59 Last Admin: 04/12/20 14:12 Dose: 230 mls/hr Documented by: Latanoprost (Xalatan 0.005% Ophth Soln) 0 ml EYEBOTH BEDTIME [facility] Last Admin: 04/12/20 20:56 Dose: 1 drop Documented by: Levothyroxine Sodium (Levothyroxine) 25 mcg PO BEDTIME [facility] Last Admin: 04/12/20 20:55 Dose: 25 mcg Documented by: Ondansetron HCl (Zofran Odt) 4 mg PO Q6H PRN PRN Reason: nausea, able to take PO Ondansetron HCl (Zofran) 4 mg IVPUSH Q6H PRN PRN Reason: Nausea/Vomiting Sodium Chloride (Saline Flush) 10 ml FLUSH ASDIRECTED PRN PRN Reason: Keep Vein Open Last Admin: 04/13/20 08:17 Dose: 10 ml Documented by: Temazepam (Restoril) 15 mg PO BEDTIME PRN PRN Reason: Sleep Discontinued Medications Enoxaparin Sodium (Lovenox) 40 mg SUBCUT DAILY [facility] Last Admin: 04/12/20 08:38 Dose: 40 mg Documented by: Remdesivir 200 mg/ Sodium (Chloride) 210 mls @ 210 mls/hr IV ONETIME ONE Stop: 04/11/20 15:14 Last Infusion: 04/11/20 16:39 Dose: Infused Documented by: - Exam Quality Assessment: Supplemental Oxygen General: Alert, Oriented Neck: Supple Lungs: Normal Respiratory Effort, Decreased Breath Sounds. No: Wheezing Cardiovascular: Regular Rate, Regular Rhythm GI/Abdominal Exam: Normal Bowel Sounds, Soft, Non-Tender Extremities: No Pedal Edema Sepsis Event Note - Evaluation Sepsis Screening Result: No Definite Risk - Focused Exam Vital Signs: Vital Signs Temp Pulse Resp BP Pulse Ox Pulse Ox 04/13/20 08:00 99.0 F 72 20 146/79 H 98 93 L - Problem List & Annotations (1) Pneumonia due to COVID-19 virus SNOMED Code(s): 969049318881452567 Code(s): U07.1 - COVID-19; J12.89 - OTHER VIRAL PNEUMONIA Status: Acute Current Visit: Yes (2) Pneumonia due to COVID-19 virus SNOMED Code(s): 184934970916301573 Code(s): U07.1 - COVID-19; J12.89 - OTHER VIRAL PNEUMONIA Status: Acute Current Visit: Yes (3) Hypoxemia SNOMED Code(s): 957332232 Code(s): R09.02 - HYPOXEMIA Status: Acute Current Visit: Yes (4) Hypothyroid SNOMED Code(s): 37871649 Code(s): E03.9 - HYPOTHYROIDISM, UNSPECIFIED Status: Acute Current Visit: Yes (5) Dyslipidemia SNOMED Code(s): 324127511 Code(s): E78.5 - HYPERLIPIDEMIA, UNSPECIFIED Status: Acute Current Visit: Yes - Problem List Review Problem List Initiated/Reviewed/Updated: Yes - My Orders Last 24 Hours: My Active Orders 04/12/20 14:00 Remdesivir (Eua) [Remdesivir (EUA)] 100 mg Sodium Chloride 0.9% [Normal Saline] 230 ml IV Q24H 04/12/20 21:00 Enoxaparin [Lovenox] 40 mg SUBCUT BID 04/13/20 06:11 PROCALCITONIN [REF] DAILY 04/14/20 05:11 BASIC METABOLIC PANEL,BMP [CHEM] AM CBC WITH AUTO DIFF [HEME] AM DD [D-DIMER QUANTITATIVE] [COAG] AM HEPATIC FUNCTION PANEL,HFP [CHEM] AM MAGNESIUM [CHEM] AM PHOSPHORUS [CHEM] AM 04/14/20 13:45 PROCALCITONIN [REF] DAILY 04/15/20 05:11 BASIC METABOLIC PANEL,BMP [CHEM] AM CBC WITH AUTO DIFF [HEME] AM DD [D-DIMER QUANTITATIVE] [COAG] AM HEPATIC FUNCTION PANEL,HFP [CHEM] AM MAGNESIUM [CHEM] AM PHOSPHORUS [CHEM] AM 04/15/20 13:45 PROCALCITONIN [REF] DAILY 04/16/20 05:11 BASIC METABOLIC PANEL,BMP [CHEM] AM CBC WITH AUTO DIFF [HEME] AM DD [D-DIMER QUANTITATIVE] [COAG] AM HEPATIC FUNCTION PANEL,HFP [CHEM] AM MAGNESIUM [CHEM] AM PHOSPHORUS [CHEM] AM 04/17/20 05:11 BASIC METABOLIC PANEL,BMP [CHEM] AM CBC WITH AUTO DIFF [HEME] AM - Plan Plan:: presented with cough Tested positive for Covid Noted to have hypoxemia in the clinic and was referred to Hospital evaluation and treatment Acute hypoxemic respiratory failure secondary to Covid 19 pneumonia Supplement oxygen as needed on a few liters nasal cannula oxygen now - taper as possible Covid 19 pneumonia symptoms started on 04/07 Positive covid 19 screen on 04/08 Symptoms: cough, Pneumonia: yes, RLL patchy opacity on 04/11 Hypoxemia: yes 89% on RA 04/11 in clinic LFT, Renal fx. Is good treat with Remdesivir 04/11- Dexamethasone 04/11- Plasma 2 units 04/11 evaluate for concurrent bacterial infections 04/11 pro-calcitonin level: 0.23 for now hold Abx recheck in AM to trend Ddimer was high - improved - cont with increased DVT prophylaxis SQ Lovenox BID hypothyroidism Continue Synthroid dyslipidemia Hold statin for now while on remdesivir
[2020-04-13] MEDS: Levothyroxine 25 MCG Tab PO SCH (20:57)
[2020-04-13] MEDS: Latanoprost 0.005% Ophth Soln 2.5 ML Bottle EYEBOTH SCH (21:01)
[2020-04-14 08:04] LABS: CHLORIDE,CL 103 mmol/L (98-107); SODIUM,NA 140 mmol/L (136-145)
[2020-04-14] MEDS: Enoxaparin 40 MG/0.4 ML Syringe SUBCUT SCH (08:11)
[2020-04-14] MEDS: Dexamethasone 2 MG Tab PO SCH (08:12)
[2020-04-14] MEDS: Aspirin 325 MG Tab PO SCH (08:12)
[2020-04-14 10:01] VITALS: PULSE 98
[2020-04-14] MEDS ORDERED: Lisinopril 10 MG Tab PO SCH (11:30)
--- NOTE | 2020-04-14 11:33 | PCM.DCSUM1 ---
Discharge Summary - Hospital Course Free Text/Narrative:: presented with cough Tested positive for Covid Noted to have hypoxemia in the clinic and was referred to Hospital evaluation and treatment Acute hypoxemic respiratory failure secondary to Covid 19 pneumonia Supplemented oxygen as needed oxygen need resolved by the time of discharge Covid 19 pneumonia symptoms started on 04/07 Positive covid 19 screen on 04/08 Symptoms: cough, Pneumonia: yes, RLL patchy opacity on 04/11 Hypoxemia: yes 89% on RA 04/11 in clinic LFT, Renal fx. Is good treat with Remdesivir 04/11- 04/14 Dexamethasone 04/11- Plasma 2 units 04/11 evaluate for concurrent bacterial infections 04/11 pro-calcitonin level: 0.23 for now hold Abx Ddimer was high - improved - cont DVT prophylaxis with ASA hypothyroidism Continue Synthroid dyslipidemia resume statin Diagnosis: Stroke: No - Discharge Data Discharge Date: 04/14/20 Discharge Disposition: Home, Self-Care 01 Condition: Good - Referral to Home Health Primary Care Physician: Radha Marmolejo, [employer]IANCE CONSULTANT - Discharge Diagnosis/Problem(s) (1) Pneumonia due to COVID-19 virus SNOMED Code(s): 326592964081446651 ICD Code: U07.1 - COVID-19; J12.89 - OTHER VIRAL PNEUMONIA Status: Acute Current Visit: Yes (2) Pneumonia due to COVID-19 virus SNOMED Code(s): 812313391045963465 ICD Code: U07.1 - COVID-19; J12.89 - OTHER VIRAL PNEUMONIA Status: Acute Current Visit: Yes (3) Hypoxemia SNOMED Code(s): 448540518 ICD Code: R09.02 - HYPOXEMIA Status: Acute Current Visit: Yes (4) Hypothyroid SNOMED Code(s): 34432785 ICD Code: E03.9 - HYPOTHYROIDISM, UNSPECIFIED Status: Acute Current Visit: Yes (5) Dyslipidemia SNOMED Code(s): 933648522 ICD Code: E78.5 - HYPERLIPIDEMIA, UNSPECIFIED Status: Acute Current Visit: Yes - Patient Instructions Diet: Heart Healthy Diet - Discharge Plan Prescriptions/Med Rec: dexAMETHasone [Dexamethasone] 6 mg PO DAILY #5 tablet lisinopriL [Prinivil] 10 mg PO DAILY #30 tablet Home Medications: Home Meds Acetaminophen [Acetaminophen 8 Hour] 1 tab PO Q8H PRN 06/14/16 [History] Latanoprost [Xalatan 0.005% Ophth Soln] 1 drop EYEBOTH BEDTIME 06/14/16 [History] Levothyroxine 25 mcg PO BEDTIME 06/14/16 [History] Simvastatin 20 mg PO BEDTIME 06/14/16 [History] Aspirin 325 mg PO DAILY 06/16/16 [History] dexAMETHasone [Dexamethasone] 6 mg PO DAILY #5 tablet 04/14/20 [Rx] lisinopriL [Prinivil] 10 mg PO DAILY #30 tablet 04/14/20 [Rx] Oxygen Therapy Mode: Room Air Patient Handouts: COVID-19 Frequently Asked Questions, COVID-19: How to Protect Yourself and Others - CDC, Infection Prevention in the Home, Prevent the Spread of COVID-19 if You Are Sick - [facility] Referrals: Radha Marmloejo NP [Primary Care Provider] - - Discharge Summary/Plan Comment DC Time >30 min.: No - General Info Date of Service: 04/14/20 Admission Dx/Problem (Free Text: Admission Diagnosis/Problem Admission Diagnosis/Problem Pneumonia Subjective Update: feeling well off oxygen Has cough but no significant sputum No associated chest pain, chills tolerating diet, no diarrhea or abdominal symptoms - Review of Systems General: Denies: Fever Pulmonary: Reports: Cough Cardiovascular: Denies: Chest Pain Gastrointestinal: Denies: Abdominal Pain Neurological: Denies: Confusion - Patient Data Vitals - Most Recent: Last Vital Signs Temp 98.8 F 04/14/20 10:00 Pulse 98 04/14/20 10:00 Resp 16 04/14/20 10:00 BP 163/90 H 04/14/20 10:00 Pulse Ox 91 L 04/14/20 10:00 Weight - Most Recent: 270 lb I&O - Last 24 hours: Intake & Output 04/13/20 04/14/20 04/14/20 22:59 06:59 14:59 Intake Total 660 Balance 660 Lab Results - Last 24 hrs: Laboratory Results - last 24 hr 04/14/20 04/14/20 04/14/20 Range/Units 07:22 07:22 07:22 WBC 8.9 (5.0-10.0) 10^3/uL RBC 5.02 (4.6-6.2) 10^6/uL Hgb 14.9 (14.0-18.0) g/dL Hct 45.6 (40.0-54.0) % MCV 90.8 (80-100) fL MCH 29.7 (27.0-34.0) pg MCHC 32.7 L (33.0-35.0) g/dL Plt Count 224 (150-450) 10^3/uL Neut % (Auto) 80.9 H (42.2-75.2) % Lymph % (Auto) 9.1 L (20.5-50.1) % [place] % (Auto) 9.4 H (2-8) % Eos % (Auto) 0.3 L (1.0-3.0) % Baso % (Auto) 0.3 (0.0-1.0) % D-Dimer, Quantitative 251 (0-400) ng/mL Sodium 140 (136-145) mmol/L Potassium 4.0 (3.5-5.1) mmol/L Chloride 103 (98-107) mmol/L Carbon Dioxide 29 (21-32) mmol/L Anion Gap 12.0 (7-13) mEq/L BUN 24 H (7-18) mg/dL Creatinine 1.08 (0.70-1.30) mg/dL Est Cr Clr Drug Dosing 61.02 mL/min Estimated GFR (MDRD) > 60 Glucose 94 (74-99) mg/dL Calcium 8.4 L (8.5-10.1) mg/dL Phosphorus 3.2 (2.6-4.7) mg/dL Magnesium 2.0 (1.8-2.4) mg/dL Total Bilirubin 0.4 (0.2-1.0) mg/dL Direct Bilirubin 0.1 (0.0-0.2) mg/dL Indirect Bilirubin 0.3 AST 30 (15-37) U/L ALT 50 (16-63) U/L Alkaline Phosphatase 132 H (46-116) U/L Total Protein 6.6 (6.4-8.2) g/dL Albumin 2.7 L (3.4-5.0) g/dL Globulin 3.9 Albumin/Globulin Ratio 0.69 TOSHIA Results - Last 24 hrs: Microbiology 04/11/20 10:14 Aerobic Blood Culture - Preliminary Blood - Arm, Left NO GROWTH AFTER 3 DAYS Anaerobic Blood Culture - Preliminary NO GROWTH AFTER 3 DAYS 04/11/20 10:17 Aerobic Blood Culture - Preliminary Blood - Arm, Right NO GROWTH AFTER 2 DAYS Anaerobic Blood Culture - Preliminary NO GROWTH AFTER 2 DAYS Med Orders - Current: Current Medications Acetaminophen (Tylenol) 650 mg PO Q4H PRN PRN Reason: Fever Greater Than 101 Last Admin: 04/11/20 10:48 Dose: 650 mg Documented by: Aspirin (Aspirin) 325 mg PO DAILY [facility] Last Admin: 04/14/20 08:12 Dose: 325 mg Documented by: Dexamethasone (Dexamethasone) 6 mg PO DAILY [facility] Stop: 04/20/20 09:01 Last Admin: 04/14/20 08:12 Dose: 6 mg Documented by: Docusate Sodium (Colace) 100 mg PO BID PRN PRN Reason: Constipation Enoxaparin Sodium (Lovenox) 40 mg SUBCUT BID [facility] Last Admin: 04/14/20 08:11 Dose: 40 mg Documented by: Remdesivir 100 mg/ Sodium (Chloride) 230 mls @ 230 mls/hr IV Q24H [facility] Stop: 04/15/20 14:59 Last Infusion: 04/13/20 15:12 Dose: Infused Documented by: Latanoprost (Xalatan 0.005% [facility]) 0 ml EYEBOTH BEDTIME [facility] Last Admin: 04/13/20 21:01 Dose: 1 drop Documented by: Levothyroxine Sodium (Levothyroxine) 25 mcg PO BEDTIME [facility] Last Admin: 04/13/20 20:57 Dose: 25 mcg Documented by: Lisinopril (Prinivil) 10 mg PO DAILY [facility] Ondansetron HCl (Zofran Odt) 4 mg PO Q6H PRN PRN Reason: nausea, able to take PO Ondansetron HCl (Zofran) 4 mg IVPUSH Q6H PRN PRN Reason: Nausea/Vomiting Sodium Chloride (Saline Flush) 10 ml FLUSH ASDIRECTED PRN PRN Reason: Keep Vein Open Last Admin: 04/13/20 15:13 Dose: 10 ml Documented by: Temazepam (Restoril) 15 mg PO BEDTIME PRN PRN Reason: Sleep Discontinued Medications Enoxaparin Sodium (Lovenox) 40 mg SUBCUT DAILY [facility] Last Admin: 04/12/20 08:38 Dose: 40 mg Documented by: Remdesivir 200 mg/ Sodium (Chloride) 210 mls @ 210 mls/hr IV ONETIME ONE Stop: 04/11/20 15:14 Last Infusion: 04/11/20 16:39 Dose: Infused Documented by: - Exam General: Reports: Alert, Oriented Lungs: Reports: Decreased Breath Sounds, Crackles (bibasilar) Cardiovascular: Reports: Regular Rate, Regular Rhythm GI/Abdominal Exam: Normal Bowel Sounds, Soft, Non-Tender Extremities: No: Pedal Edema Skin: Reports: Warm, Dry
[2020-04-14] MEDS: Sodium Chloride 0.9% 10 ML Syringe FLUSH PRN (11:36)
[2020-04-14 12:29] VITALS: BP 136/90
== END 2020-04-14 13:00 | disposition home or self-care (01) | DRG 177 ==
LOC: DL.MS 09:38 → UNDOADMIN 09:38 → DL.MS 10:35
PROVIDERS: ADMIT Internal Medicine; ATTEND Internal Medicine
PROC: 8E0ZXY6 Isolation (ICD-10-PCS; principal; 2020-04-11)
PROC: 30233K1 Transfusion of Nonautologous Frozen Plasma into Peripheral Vein, Percutaneous Approach (ICD-10-PCS; principal; 2020-04-11)
PROC: XW033E5 Introduction of Remdesivir Anti-infective into Peripheral Vein, Percutaneous Approach, New Technology Group 5 (ICD-10-PCS; principal; 2020-04-11)
DX: U07.1 COVID-19 (principal); J12.89 Other viral pneumonia; J96.01 Acute respiratory failure with hypoxia; E03.9 Hypothyroidism, unspecified; E78.5 Hyperlipidemia, unspecified; E66.01 Morbid (severe) obesity due to excess calories; H40.9 Unspecified glaucoma; E78.00 Pure hypercholesterolemia, unspecified; K64.8 Other hemorrhoids; K43.9 Ventral hernia without obstruction or gangrene; M19.90 Unspecified osteoarthritis, unspecified site; Z96.659 Presence of unspecified artificial knee joint; Z79.890 Hormone replacement therapy; Z79.82 Long term (current) use of aspirin; Z79.52 Long term (current) use of systemic steroids; Z79.899 Other long term (current) drug therapy; Z88.0 Allergy status to penicillin; Z87.891 Personal history of nicotine dependence; Z99.81 Dependence on supplemental oxygen; Z68.38 Body mass index [BMI] 38.0-38.9, adult
CPT/HCPCS: 36415; 36430; 71045; 80048; 80076; 82728; 83605; 83735; 84100; 84145; 85025; 85379; 85610; 86140; 86900; 86901; 87040; 94618; 99222; 99232; 99238; A9270-GY; J1650; J7050; J8540; P9017

== ENCOUNTER 2021-03-09 09:05 | Emergency (ER) | payer MEDICARE, BC ==
[2021-03-09] MEDS ORDERED: Aspirin 81 MG Tab.Chew PO ONE (09:22)
--- NOTE | 2021-03-09 09:26 | EDM.PDOC ---
<Frank Sen - Last Filed: 03/09/21 10:13> ED HPI GENERAL MEDICAL PROBLEM - General Stated Complaint: [id number] CHEST PAIN Time Seen by Provider: 03/09/21 09:25 - Related Data Allergies Allergy/AdvReac Type Severity Reaction Status Date / Time Penicillins Allergy Cannot Verified 08/07/19 08:24 Remember Home Meds: Home Meds Acetaminophen [Acetaminophen 8 Hour] 1 tab PO Q8H PRN 06/14/16 [History] Latanoprost [Xalatan 0.005% Ophth Soln] 1 drop EYEBOTH BEDTIME 06/14/16 [History] Levothyroxine 25 mcg PO BEDTIME 06/14/16 [History] Simvastatin 20 mg PO BEDTIME 06/14/16 [History] Aspirin 325 mg PO DAILY 06/16/16 [History] dexAMETHasone [Dexamethasone] 6 mg PO DAILY #5 tablet 04/14/20 [Rx] lisinopriL [Prinivil] 10 mg PO DAILY #30 tablet 04/14/20 [Rx] Course - Radiology Interpretation Free Text/Narrative:: [facility] Final Radiology Report Call: [phone] assistance Online chat: [email or web address] Name: JIAN MCBRIDE Age: 75Years M Date: 03/09/2021 SSN: -- : [id number] Study: CR CHEST 1V FRONTAL Requesting Physician: Aung Parkinson Images: 1 Addl Studies: Provided Clinical History: cp Contrast: Contrast Medium: Contrast Amount: Contrast Method: CONFIDENTIALITY STATEMENT This report is intended only for use by the referring physician, and only in accordance with law. If you received this in error, call [phone]. Page 1 of 1 PROCEDURE INFORMATION: Exam: XR Chest Exam date and time: 03/09/2021 9:43 AM Age: 75 years old Clinical indication: Other: Chest pain; Additional info: Cp TECHNIQUE: Imaging protocol: XR of the chest. Views: 1 view. COMPARISON: CR Chest 1V Frontal 04/11/2020 12:14 PM FINDINGS: Lungs: Atelectasis or infiltrate in the lung bases. Pleural spaces: Unremarkable. No pleural effusion. No pneumothorax. Heart/Mediastinum: Cardiomegaly Bones/joints: Unremarkable. Other findings: Shallow inspiration. IMPRESSION: Shallow inspiration with atelectasis or infiltrate in the lung bases Thank you for allowing us to participate in the care of your patient. Dictated and Authenticated by: Leena Campbell MD 03/09/2021 10:12 AM Central Time ([place] & [place]) Departure - Departure Disposition: Home, Self-Care 01 Clinical Impression: Nonspecific chest pain Instructions: Nonspecific Chest Pain, Adult Additional Instructions: Follow up with your primary care facility for furhter work up of your non specific chest pain. If any new symptoms or concerns develop contact your primary care facility or return to the ER. <Aung Parkinson - Last Filed: 03/09/21 10:45> ED HPI GENERAL MEDICAL PROBLEM - General Source of Information: Reports: Patient History Limitations: Reports: No Limitations - History of Present Illness INITIAL COMMENTS - FREE TEXT/NARRATIVE: 75 y/o M reports an episode of CP that began early this morning while he was drinking coffee. The pain was dull center chest, non radiating, 2/10 and lasted 15-20 min before subsiding without intervention. SImilar episode over the weekend on Sat where pt was walking while hunting and developed cp. He repors he stopped walking and the pain subsided. Denies NVD, db, diaphoresis, abd pn, recent trauma, extremity pn. No blood thinners. Hx of high cholesterol, hypothyroidism. Past Medical History HEENT History: Reports: Glaucoma, Hard of Hearing Cardiovascular History: Reports: High Cholesterol Respiratory History: Reports: Bronchitis, Recurrent Gastrointestinal History: Reports: Hemorrhoids, Other (See Below) Other Gastrointestinal History: VENTRAL HERNIA Genitourinary History: Reports: None Musculoskeletal History: Reports: Fracture, Other (See Below) Other Musculoskeletal History: DEGENERATIVE JOINT DISEASE Neurological History: Reports: None Psychiatric History: Reports: None Endocrine/Metabolic History: Reports: Hypothyroidism, Obesity/BMI 30+ Hematologic History: Reports: None Immunologic History: Reports: None Oncologic (Cancer) History: Reports: None Dermatologic History: Reports: None - Infectious Disease History Infectious Disease History: Reports: Novel Coronavirus - Past Surgical History HEENT Surgical History: Reports: Other (See Below) Musculoskeletal Surgical History: Reports: Arthroscopic Knee, Joint Replacement, Other (See Below) Social & Family History - Family History HEENT: Reports: None Cardiac: Reports: None Respiratory: Reports: None GI: Reports: None : Reports: None OBGYN: Reports: None Musculoskeletal: Reports: Arthritis Neurological: Reports: None Psychiatric: Reports: None Endocrine/Metabolic: Reports: Hypothyroidism Hematologic: Reports: None Immunologic: Reports: None Dermatologic: Reports: None Oncologic: Reports: Prostate, Skin - Caffeine Use Caffeine Use: Reports: None ED ROS GENERAL - Review of Systems Review Of Systems: Comprehensive ROS is negative, except as noted in HPI. ED EXAM, GENERAL - Physical Exam Exam: See Below Exam Limited By: No Limitations General Appearance: Alert Throat/Mouth: Normal Inspection, Normal Lips, Normal Teeth, Normal Gums, Normal Oropharynx, Normal Voice, No Airway Compromise Head: Atraumatic, Normocephalic Neck: Normal Inspection, Supple, Non-Tender, Full Range of Motion Respiratory/Chest: No Respiratory Distress, Lungs Clear, Normal Breath Sounds, No Accessory Muscle Use, Chest Non-Tender Cardiovascular: Normal Peripheral Pulses, Regular Rate, Rhythm, No Edema, No Gallop, No JVD, No Murmur, No Rub GI/Abdominal: Soft, Non-Tender Extremities: Normal Inspection, Normal Range of Motion, Non-Tender, Normal Capillary Refill, No Pedal Edema Neurological: Alert, Oriented, CN II-XII Intact, Normal Cognition, Normal Gait, Normal Reflexes, No Motor/Sensory Deficits Psychiatric: Normal Affect, Normal Mood Skin Exam: Warm, Dry, Intact, Normal Color, No Rash #1 Interpretation EKG Date: 03/09/21 Time: 09:19 Rhythm: NSR [place]: Normal P-Wave: Present QRS: Wide ST-T: Normal QT: Normal EKG Interpretation Comments: sinus rhythm normal axis with IVCD Course - Vital Signs Last Recorded V/S: Last Vital Signs Temp 98.2 F 03/09/21 09:10 Pulse 72 03/09/21 09:10 Resp 16 03/09/21 09:10 BP 158/94 H 03/09/21 09:10 Pulse Ox 100 03/09/21 09:10 - Orders/Labs/Meds Orders: Active Orders 24 hr Category Date Time Status CORONAVIRUS COVID-19 LOLY [MOLEC] Stat Lab 03/09/21 10:00 Ordered Labs: Laboratory Tests 03/09/21 03/09/21 Range/Units 09:20 09:20 WBC 6.4 (5.0-10.0) 10^3/uL RBC 5.35 (4.6-6.2) 10^6/uL Hgb 16.0 (14.0-18.0) g/dL Hct 48.4 (40.0-54.0) % MCV 90.5 (80-100) fL MCH 29.9 (27.0-34.0) pg MCHC 33.1 (33.0-35.0) g/dL Plt Count 220 (150-450) 10^3/uL Neut % (Auto) 66.1 (42.2-75.2) % Lymph % (Auto) 20.8 (20.5-50.1) % [place] % (Auto) 9.4 H (2-8) % Eos % (Auto) 3.1 H (1.0-3.0) % Baso % (Auto) 0.6 (0.0-1.0) % Sodium 143 (136-145) mmol/L Potassium 4.3 (3.5-5.1) mmol/L Chloride 106 (98-107) mmol/L Carbon Dioxide 28 (21-32) mmol/L Anion Gap 13.3 H (7-13) mEq/L BUN 22 H (7-18) mg/dL Creatinine 1.16 (0.70-1.30) mg/dL Est Cr Clr Drug Dosing TNP Estimated GFR (MDRD) > 60 BUN/Creatinine Ratio 19.0 (No establ ref range) Glucose 118 H (70-99) mg/dL Calcium 8.5 (8.5-10.1) mg/dL Magnesium 1.9 (1.8-2.4) mg/dL Total Bilirubin 0.4 (0.2-1.0) mg/dL AST 17 (15-37) U/L ALT 26 (16-63) U/L Alkaline Phosphatase 105 (46-116) U/L Troponin I High Sens 15 (<=76) pg/mL C-Reactive Protein < 0.2 (0.0-0.9) mg/dL B-Natriuretic Peptide 26 (0-100) pg/ml Total Protein 7.0 (6.4-8.2) g/dL Albumin 3.5 (3.4-5.0) g/dL Globulin 3.5 Albumin/Globulin Ratio 1.0 Amylase 83 (25-115) U/L Lipase 170 (73-393) U/L TSH, Ultra Sensitive 3.63 (0.36-3.74) uIU/mL Meds: Medications Discontinued Medications Generic Name Dose Route Start Last Admin Trade Name Freq PRN Reason Stop Dose Admin Aspirin 324 mg 03/09/21 09:22 03/09/21 09:46 Aspirin 81 Mg Tab.Chew PO 03/09/21 09:23 324 mg ONETIME ONE Administration - Radiology Interpretation Free Text/Narrative:: I have discussed the labs, exam, ekg and imaging, with the pt. There is no acute cardiac findings. I will have pt follow up with cardiology for further outpatient work up Departure - Departure Time of Disposition: 10:42 Condition: Good Sepsis Event Note (ED) - Focused Exam Vital Signs: Vital Signs Temp Pulse Resp BP Pulse Ox 03/09/21 09:10 98.2 F 72 16 158/94 H 100 - My Orders Last 24 Hours: My Active Orders 03/09/21 10:00 CORONAVIRUS COVID-19 LOLY [MOLEC] Stat - Assessment/Plan Last 24 Hours: My Active Orders 03/09/21 10:00 CORONAVIRUS COVID-19 LOLY [MOLEC] Stat
[2021-03-09 09:51] LABS: ANION GAP 13.3 mEq/L (7-13); CHLORIDE,CL 106 mmol/L (98-107); SODIUM,NA 143 mmol/L (136-145)
[2021-03-09 10:10] VITALS: BP 158/94; PULSE 72
--- NOTE | 2021-03-09 10:12 | CR ---
PROCEDURE INFORMATION: Exam: XR Chest Exam date and time: 03/09/2021 9:43 AM Age: 75 years old Clinical indication: Other: Chest pain; Additional info: Cp TECHNIQUE: Imaging protocol: XR of the chest. Views: 1 view. COMPARISON: CR Chest 1V Frontal 04/11/2020 12:14 PM FINDINGS: Lungs: Atelectasis or infiltrate in the lung bases. Pleural spaces: Unremarkable. No pleural effusion. No pneumothorax. Heart/Mediastinum: Cardiomegaly Bones/joints: Unremarkable. Other findings: Shallow inspiration. IMPRESSION: Shallow inspiration with atelectasis or infiltrate in the lung bases
== END 2021-03-09 10:55 | disposition home or self-care (01) ==
LOC: DL.ED 09:05
DX: R07.9 Chest pain, unspecified (principal); E78.00 Pure hypercholesterolemia, unspecified; E03.9 Hypothyroidism, unspecified; E66.9 Obesity, unspecified; Z68.39 Body mass index [BMI] 39.0-39.9, adult; Z79.899 Other long term (current) drug therapy
CPT/HCPCS: 36415; 71045; 80053; 82150; 83690; 83735; 83880; 84443; 84484; 85025; 86140; 93005; 99285; A9270; U0002